=== PATIENT | female | born 1950 | race Caucasian/White ===

== ENCOUNTER 2019-05-20 15:34 | Outpatient (CLI) | payer MEDICARE ==
[~2019-05-20 15:34] MED LIST: ASCO1CAP2 PO; ASPI-496 PO; CELE200C PO; CHOL100011 PO; CHOL500045 PO; DIAZ5TAB PO; DOCU-131 PO; DONE10TA7 PO; ETOD400T PO; MELO7.5T31 PO; MEMA5TAB PO; ONDA4TAB10 PO; OXYC5CAP2 PO; PARO10TA3 PO; TRAM50TA2 PO; TURM1CAP PO; VERA120T5 PO
== END 2019-05-20 23:59 | disposition home or self-care (01) ==
LOC: CFH 15:34
PROVIDERS: ATTEND Nurse Practitioner Family
DX: M47.27 Other spondylosis with radiculopathy, lumbosacral region (principal); M51.16 Intervertebral disc disorders with radiculopathy, lumbar region
CPT/HCPCS: 72148

== ENCOUNTER → 2020-07-15 | Outpatient (CLI) | payer MEDICARE ==
[~2020-07-15] MED LIST changes: +VERA120T13 PO; -VERA120T5 PO
== END | disposition home or self-care (01) ==
LOC: CFH 09:13
PROVIDERS: ATTEND Nurse Practitioner
DX: Z12.31 Encounter for screening mammogram for malignant neoplasm of breast (principal); I67.82 Cerebral ischemia; G93.89 Other specified disorders of brain
CPT/HCPCS: 70551; 77063; 77067